=== PATIENT | female | born 1965 | race Caucasian/White ===

== ENCOUNTER → 2024-08-17 10:36 | Outpatient (REF) | payer BC, SELFPAY | LOC: WDC 10:36 | PROVIDERS: ATTENDING PHYSICIAN Obstetrics & Gynecology; REFERRING PHYSICIAN Registered Nurse Women's Health Care, Ambulatory | DX: N93.8 Other specified abnormal uterine and vaginal bleeding (principal); Z12.31 Encounter for screening mammogram for malignant neoplasm of breast; D25.9 Leiomyoma of uterus, unspecified | CPT/HCPCS: 76830 ==